=== PATIENT | female | born 1975 | race Caucasian/White ===

== ENCOUNTER 2019-12-27 16:04 | Emergency (ER) | payer OTHER, SELFPAY ==
[2019-12-27 16:07] VITALS: BMI 41.3
--- NOTE | 2019-12-27 16:15 | HMH.COUGH ---
[facility] HPI - History of Present Illness Complaint:: nausea adn diarrhea HPI:: 44 year old female presents to the [facility] with less than 24 hours of nausea, diarrhea, and at least 3 family members with the same symptoms. She has not had fever or cough Home Medications: Home Medications Medication Instructions Recorded Confirmed Type Meloxicam [Mobic 7.5mg Tab] 7.5 mg PO BID 12/27/19 12/27/19 History Metformin HCl [Metformin 1000mg 1,000 mg PO BID 12/27/19 12/27/19 History Tablets] Promethazine HCl [Phenergan 25mg 25 mg PO Q6H PRN #20 tab 12/27/19 Rx tab] Sertraline HCl [Zoloft 50mg tablet] 50 mg PO DAILY 12/27/19 12/27/19 History lisinopriL [Lisinopril 2.5mg Tab] 2.5 mg PO DAILY 12/27/19 12/27/19 History [facility] Triage - Symptoms Fever History: No Chills: No Myalgia: No Nasal Drainage: No Sore Throat: No Productive Cough: No Non-productive Cough: No Ear or Sinus Pain: No Joint Pain: No Chest Pain: No Rash: No Shortness of Breath: No Nausea or Vomitting: Yes (nausea) Headache: No Abdominal Pain: No Diarrhea: Yes - Exposure History Foreign Travel: No Direct Contact with COVID-19 Patient: No - Risk Factors Greater than 60 Years Old: No COPD: No Diabetes: Yes Heart Disease: No Home Oxygen Use: No Chronic Renal Disease: No Chronic Liver Disease: No Neurologic/Neurodevelopmental/intellectual disability: No Other Chronic Diseases: No If Female, currently : No Current Smoker: No Former Smoker: No [facility] History I have reviewed the patient's past medical history: Yes ROS Obtained: Yes All systems reviewed & no additional complaints [facility] Exam - General General appearance: alert, in no apparent distress - Head Head exam: atraumatic, normocephalic, normal inspection - Eye Eye exam: Present: normal appearance, PERRL, EOMI - ENT ENT exam: Present: normal exam, normal oropharynx, mucous membranes moist, TM's normal bilaterally, normal external ear exam - Neck Neck exam: Present: normal inspection, full ROM, trachea midline. Absent: meningismus, lymphadenopathy - Chest Chest inspection: Present: normal inspection, symmetric chest wall rise. Absent: tenderness - Respiratory Respiratory exam: Present: normal lung sounds bilaterally. Absent: respiratory distress - Cardiovascular Cardiovascular exam: Present: regular rate, normal rhythm. Absent: JVD - Extremities Exam Extremities exam: Present: normal inspection, full ROM, normal capillary refill. Absent: calf tenderness - Neurological Exam Neurological exam: Present: alert, oriented X3 - Skin Skin exam: Present: warm, dry, intact, normal color - Lymphatic Lymphatic Findings: no adenopathy [facility] MDM Vital Signs: 12/27/19 16:19 Temperature 98 F Temperature Source Oral Pulse Rate 89 Respiratory Rate 20 Blood Pressure 165/100 H Blood Pressure Source Automatic Cuff Blood Pressure Position Sitting [facility] Disposition Clinical Impression: Gastroenteritis Disposition: Home, Self-Care Instructions: Viral Gastroenteritis Prescriptions: Promethazine HCl [Phenergan 25mg tab] 25 mg PO Q6H PRN #20 tab PRN Reason: Nausea And Vomiting Transmission Status: Received by [facility] Referrals: Sharee Arceo APRN [Primary Care Provider] -
[2019-12-27 16:19] VITALS: BP 165/100; PULSE 89; RESP 20; TEMP 36.6; O2SAT 97
== END 2019-12-27 16:19 | disposition home or self-care (01) ==
LOC: COUGHCL 16:09
PROVIDERS: Emergency Provider Family Medicine; PCP Nurse Practitioner Family
DX: K52.9 Noninfective gastroenteritis and colitis, unspecified (principal)
CPT/HCPCS: 99201; 99212

== ENCOUNTER → 2020-10-15 08:31 | Outpatient (CLI) | payer BC, SELFPAY ==
--- NOTE | 2020-10-15 08:37 | XR_ITS ---
PROCEDURE: XR KNEE RT 4V CLINICAL INDICATION: right knee pain COMPARISON: No exams were available for comparison FINDINGS: No fracture or dislocation. No lytic or blastic change. There is normal mineralization. There are osteoarthritic changes involving all 3 compartments greatest at the medial compartment and patellofemoral joint mild to moderate in nature. Other findings:None. IMPRESSION: [id number] osteoarthritic changes greatest at the medial compartment Dictated by: Benedicto Palmer MD 10/15/2020 15:40 Benedicto Palmer MD in [place] 10/15/2020 15:40
--- NOTE | 2020-10-15 08:37 | XR_ITS ---
PROCEDURE: XR KNEE LT 4V CLINICAL INDICATION: left knee pain COMPARISON: No exams were available for comparison FINDINGS: No fracture or dislocation. No lytic or blastic change. There is normal mineralization. There are mild osteoarthritic changes involving all 3 compartments. Other findings:None. IMPRESSION: Mild osteoarthritis Dictated by: Benedicto Palmer MD 10/15/2020 15:39 Benedicto Palmer MD in [place] 10/15/2020 15:39
== END ==
PROVIDERS: PCP Nurse Practitioner Family; Visit Provider Orthopaedic Surgery
DX: M25.562 Pain in left knee (principal); M25.561 Pain in right knee
CPT/HCPCS: 73564

== ENCOUNTER → 2022-05-14 15:22 | Outpatient (CLI) | payer BC, SELFPAY ==
--- NOTE | 2022-05-14 16:37 | XR_ITS ---
FINAL REPORT CLINICAL HISTORY: ankle pain, fall, c/o rt lat foot and ankle pain FINDINGS: Right ankle Three views were obtained. There is no acute fracture or dislocation. Mild degenerative changes are present. There are calcaneal spurs. No soft tissue abnormality is identified. IMPRESSION: Mild degenerative changes with no acute bony abnormality. Reviewed, Interpreted and Dictated by Kaiden Vaughn III, MD Transcribed by Jannette Rocha Authenticated and . [facility]
--- NOTE | 2022-05-14 16:37 | XR_ITS ---
FINAL REPORT CLINICAL HISTORY: foot pain, fall, c/o rt lat foot and ankle pain FINDINGS: Right foot Three views were obtained. There is no acute fracture or dislocation. Mild degenerative changes are present. There are calcaneal spurs. No soft tissue abnormality is identified. IMPRESSION: Mild degenerative changes with no acute bony abnormality. Reviewed, Interpreted and Dictated by Kaiden Vaughn III, MD Transcribed by Jannette Rocha Authenticated and [facility]
== END ==
PROVIDERS: PCP Emergency Medicine; Visit Provider Podiatrist
DX: M79.671 Pain in right foot (principal); M25.571 Pain in right ankle and joints of right foot
CPT/HCPCS: 73610; 73630